=== PATIENT | male | born 1945 | race American Indian/Alaskan Native ===

== ENCOUNTER 2024-07-18 15:39 | Outpatient (CLI) | payer MEDICARE, SELFPAY ==
[2024-07-18 19:32] LABS: Hematocrit 40.7 % (42.0-52.0); Hemoglobin 13.4 g/dL (14.0-18.0); Mean Corpuscular HGB Conc 32.9 g/dl (32-36); Mean Corpuscular Hemoglobin 31.1 pg (26-34); Mean Corpuscular Volume 94.4 fl (80-100); Mean Platelet Volume 10.4 fl (7.4-10.4); Platelet Count Result 240 k/mm3 (150-375); Red Blood Count 4.31 M/mm3 (4.6-6.20); Red Cell Distribution Width 13.1 % (11.5-14.5); White Blood Count 6.8 K/mm3 (4.5-10.0)
[2024-07-19 07:42] LABS: Anion Gap 14 mmol/L (4-12); Blood Urea Nitrogen 20 mg/dL (9-20); Calcium 9.7 mg/dL (8.4-10.2); Carbon Dioxide 22 mmol/L (22-30); Chloride 106 mmol/L (98-107); Estimated Glomerular Filt Rate > 60; Glucose 68 mg/dL (65-110); Potassium 4.4 mmol/L (3.4-5.0); Sodium 142 mmol/L (137-145); Uric Acid 6.5 mg/dL (3.5-8.5)
[2024-07-19 08:12] LABS: Prostate Specific Antigen 2.4 ng/mL (< OR = 4.0); Thyroid Stimulating Hormone 0.327 uIU/mL (0.465-4.680)
== END 2024-07-18 15:40 | disposition home or self-care (01) ==
LOC: ANHGOSHLAB 15:41
PROVIDERS: PCP Family Medicine; Visit Provider Family Medicine
DX: N40.0 Benign prostatic hyperplasia without lower urinary tract symptoms (principal); I10 Essential (primary) hypertension; E03.9 Hypothyroidism, unspecified; M1A.00X0 Idiopathic chronic gout, unspecified site, without tophus (tophi); N28.9 Disorder of kidney and ureter, unspecified; Z12.5 Encounter for screening for malignant neoplasm of prostate
CPT/HCPCS: 36415; 80048; 84153; 84439; 84443; 84550; 85027; G0103

== ENCOUNTER 2024-07-31 10:32 | Outpatient (CLI) | payer MEDICARE, SELFPAY ==
--- NOTE | 2024-08-09 15:50 | WPDHOLTEREM ---
Holter/Event Monitor Holter/Event Monitor Date of procedure: 07/31/24 Holter/Event Procedure: 3-7 Day Holter Monitor Indications: Bradycardia Conclusion: 1. 3 days holter monitor on 07/31/24. 2. Predominant rhythm is sinus rhythm. HR range 45-167 bpm; average HR 63 bpm. HR at 45 bpm was on 08/02/24 at 2:43 am. 3. There are rare premature supraventricular complexes, rare supraventricular couplets, and rare supraventricular triplets. There are 4 episodes of supraventricular tachycardia, fastest at 167 bpm and longest lasting 11 beats. 5. There are rare premature ventricular complexes. No ventricular tachycardia. 6. No significant pauses greater than 3 seconds. 7. No symptoms available for correlation.
== END 2024-07-31 10:33 | disposition home or self-care (01) ==
PROVIDERS: PCP Family Medicine; Visit Provider Family Medicine
DX: I47.10 Supraventricular tachycardia, unspecified (principal); I49.3 Ventricular premature depolarization; R00.1 Bradycardia, unspecified
CPT/HCPCS: 93242

== ENCOUNTER 2024-09-21 11:05 | Outpatient (CLI) | payer MEDICARE, SELFPAY ==
[2024-09-21 19:26] LABS: Hematocrit 45.7 % (42.0-52.0); Hemoglobin 14.7 g/dL (14.0-18.0); Mean Corpuscular HGB Conc 32.2 g/dl (32-36); Mean Corpuscular Hemoglobin 31.6 pg (26-34); Mean Corpuscular Volume 98.3 fl (80-100); Mean Platelet Volume 10.6 fl (7.4-10.4); Platelet Count Result 251 k/mm3 (150-375); Red Blood Count 4.65 M/mm3 (4.6-6.20); Red Cell Distribution Width 13.7 % (11.5-14.5); White Blood Count 8.5 K/mm3 (4.5-10.0)
[2024-09-21 20:01] LABS: Iron 95 ug/dL (49-181)
[2024-09-21 21:42] LABS: Free T4 Free Thyroxine 1.33 ng/dL (0.78-2.19)
== END 2024-09-21 11:06 | disposition home or self-care (01) ==
LOC: ANHGOSHLAB 11:06
PROVIDERS: PCP Family Medicine; Visit Provider Nurse Practitioner Family
DX: D64.9 Anemia, unspecified (principal); E03.9 Hypothyroidism, unspecified
CPT/HCPCS: 36415; 82607; 83540; 84439; 84443; 85027

== ENCOUNTER 2025-05-09 08:11 | Outpatient (CLI) | payer MEDICARE, SELFPAY ==
[2025-05-09 19:39] LABS: Anion Gap 7 mmol/L (4-12); Blood Urea Nitrogen 27 mg/dL (9-20); Calcium 10.1 mg/dL (8.4-10.2); Carbon Dioxide 27 mmol/L (22-30); Chloride 105 mmol/L (98-107); Estimated Glomerular Filt Rate > 60; Glucose 87 mg/dL (65-110); Potassium 4.6 mmol/L (3.4-5.0); Sodium 139 mmol/L (137-145)
== END 2025-05-09 08:12 | disposition home or self-care (01) ==
PROVIDERS: PCP Family Medicine; Visit Provider Internal Medicine Interventional Cardiology
DX: I10 Essential (primary) hypertension (principal)
CPT/HCPCS: 36415; 80048

== ENCOUNTER 2025-05-11 09:32 | Outpatient (CLI) | payer MEDICARE, SELFPAY ==
--- NOTE | ~2025-05-11 | US_ITS ---
EXAMINATION: US retroperitoneal duplex ltd DATE: 05/11/2025 09:57 INDICATION: Essential primary hypertension TECHNIQUE: Multiple grayscale, color Doppler, and pulsed Doppler images of the kidneys and renal arteries were obtained. COMPARISON: None. FINDINGS: The aorta peak systolic velocity is 103 cm/s. The right renal artery peak systolic velocity is 80 cm/s in the proximal segment, 97 cm/s in the mid segment, and 90 cm/s in the distal segment. The left renal artery peak systolic velocity is 61 cm/s in the proximal segment, 84 cm/s in the mid segment, and 102 cm/s in the distal segment. IMPRESSION: 1. No Doppler evidence of renal artery stenosis. Reviewed, dictated and finalized at location A. [facility]
== END 2025-05-11 09:33 | disposition home or self-care (01) ==
LOC: GOSHIMG 09:33
PROVIDERS: PCP Family Medicine; Visit Provider Internal Medicine Interventional Cardiology
DX: I10 Essential (primary) hypertension (principal)
CPT/HCPCS: 93976